=== PATIENT | male | born 2000 | race Hispanic/Latino ===

== ENCOUNTER 2023-07-10 19:04 | Emergency (ER) | payer OTHER ==
[~2023-07-10] VITALS: Ht 182.9 cm; Wt 115.7 kg
[2023-07-10 21:04] LABS: Trichomonas vaginalis (AMP) NOT DETECTED (NEGATIVE)
[2023-07-10 21:27] LABS: GC DNA AMPLIFICATION NEGATIVE (NEGATIVE)
[2023-07-11 02:00] VITALS: BP 155/96; TEMP 98; O2SAT 99
[2023-07-15 08:12] LABS: HSV-1 DNA Negative (Negative); HSV-2 DNA Negative (Negative)
== END 2023-07-11 04:54 | disposition home or self-care (01) ==
LOC: M ED 19:04
DX: Z20.2 Contact with and (suspected) exposure to infections with a predominantly sexual mode of transmission (principal)